=== PATIENT | male | born 1985 | race Caucasian/White ===

== ENCOUNTER → 2016-07-05 | Outpatient (CLI) | payer OTHER ==
[2016-07-05 08:42] LABS: ALBUMIN 4.1 GM/DL (3.2-5.2); ALBUMIN/GLOBULIN RATIO 1.32 (1.00-1.93); ALKALINE PHOSPHATASE 66 U/L (45-117); ALT/SGPT 57 U/L (12-78); ANION GAP 7 MEQ/L (8-16); AST/SGOT 29 U/L (15-37); BILIRUBIN,TOTAL 0.5 MG/DL (0.2-1.0); BLOOD UREA NITROGEN 13 MG/DL (7-18); CALCIUM LEVEL 8.9 MG/DL (8.5-10.1); CARBON DIOXIDE LEVEL 30 MEQ/L (21-32); CHLORIDE LEVEL 105 MEQ/L (98-107); CHOLESTEROL LEVEL 209 MG/DL (<200); GLOMERULAR FILTRATION RATE > 60.0 (>60); GLUCOSE, FASTING 99 MG/DL (70-105); POTASSIUM SERUM 4.2 MEQ/L (3.5-5.1); SODIUM LEVEL 142 MEQ/L (136-145); TOTAL PROTEIN 7.2 GM/DL (6.4-8.2); TRIGLYCERIDES LEVEL 106 MG/DL (<150)
== END ==
LOC: M LAB 07:17
PROVIDERS: ATTEND Nurse Practitioner Family
DX: E78.00 Pure hypercholesterolemia, unspecified (principal)

== ENCOUNTER → 2017-01-03 | Outpatient (REF) | payer OTHER ==
[~2017-01-03] MED LIST: no medications
== END ==
LOC: M SFHCLERA 13:46
PROVIDERS: ATTEND Nurse Practitioner Family
DX: J35.1 Hypertrophy of tonsils (principal)

== ENCOUNTER 2017-01-23 11:48 | Day surgery (SDC) | payer OTHER ==
[~2017-01-23] VITALS: Ht 177.8 cm; Wt 104.3 kg
[2017-01-23] MEDS ORDERED: LR 1,000 ML IV ONE (12:00)
[2017-01-23] MEDS ORDERED: LIDOCAINE 2% INJ 100 MG/5 ML SDV (FOR ANES.) As Ordered ONE (12:19)
[2017-01-23] MEDS ORDERED: ONDANSETRON 4MG/2ML VIAL (J2405) As Ordered ONE (12:19)
[2017-01-23] MEDS ORDERED: PROPOFOL 200 MG/20 ML VIAL As Ordered ONE (12:19)
[2017-01-23] MEDS ORDERED: ROCURONIUM BROMIDE 50 MG/5 ML VIAL/SYRINGE As Ordered ONE (12:19)
[2017-01-23] MEDS ORDERED: MIDAZOLAM INJ 2 MG/2 ML VIAL (J2250) As Ordered ONE (12:20)
[2017-01-23] MEDS ORDERED: fentaNYL 250 MCG/5 ML INJECTION (J3010) As Ordered ONE (12:20)
[2017-01-23] MEDS ORDERED: LIDOCAINE W/EPINEPHRINE 1% 20ML VIAL As Ordered ONE (12:44)
[2017-01-23] MEDS ORDERED: BUPIVACAINE/EPIN 0.5% 30 ML VIAL As Ordered ONE (12:44)
[2017-01-23] MEDS ORDERED: ONDANSETRON 4MG/2ML VIAL (J2405) IV PRN (14:00)
[2017-01-23] MEDS ORDERED: fentaNYL 100 MCG/2 ML INJECTION (J3010) IV PRN (14:00)
[2017-01-23] MEDS ORDERED: LR 1,000 ML IV SCH (14:00)
[2017-01-23] MEDS ORDERED: PERCOCET 5MG/325MG TAB PO PRN (14:00)
[2017-01-23] MEDS ORDERED: SUGAMMADEX SODIUM 500 MG/5 ML VIAL (BRIDION) As Ordered ONE (14:23)
[2017-01-23 15:30] VITALS: BP 146/83
--- NOTE | 2017-01-24 09:16 | RO ---
DATE OF PROCEDURE: 01/23/2017 PREPROCEDURE DIAGNOSIS: Chronic tonsillitis. POSTPROCEDURE DIAGNOSIS: Chronic tonsillitis. OPERATIVE PROCEDURE: Tonsillectomy. SURGEON: Archie Berry MD MAGAZINE WRITER: ANESTHESIA: DESCRIPTION OF PROCEDURE: Under general anesthesia with the patient intubated, a Lama-Xiang mouth gag was inserted. The tonsillar area was infiltrated with lidocaine, epinephrine, and Marcaine. Using a Coblator setting at 6 and 4, the tonsil was dissected free from its bed on both sides. The base and apex and other areas were cauterized with a setting of 4 on the Coblator. No blood loss. A nasogastric tube was passed to suction the upper esophagus. The patient tolerated the procedure well, was extubated and transferred to the recovery room in excellent condition.
== END 2017-01-23 15:42 | disposition home or self-care (01) ==
LOC: M SDC 11:48
PROVIDERS: ATTEND Otolaryngology
DX: J35.01 Chronic tonsillitis (principal)
CPT/HCPCS: 42826; 88302; J2250; J2405; J3010

== ENCOUNTER → 2017-11-10 | Outpatient (REF) | payer OTHER ==
[2017-11-10 12:14] LABS: ALBUMIN 3.6 GM/DL (3.2-5.2); ALBUMIN/GLOBULIN RATIO 0.97 (1.00-1.93); ALKALINE PHOSPHATASE 57 U/L (45-117); ANION GAP 8 MEQ/L (8-16); AST/SGOT 78 U/L (7-37); BILIRUBIN,TOTAL 0.7 MG/DL (0.2-1.0); BLOOD UREA NITROGEN 12 MG/DL (7-18); CALCIUM LEVEL 8.7 MG/DL (8.5-10.1); CARBON DIOXIDE LEVEL 27 MEQ/L (21-32); CHLORIDE LEVEL 104 MEQ/L (98-107); CHOLESTEROL LEVEL 192 MG/DL (<200); CHOLESTEROL RISK RATIO 4.465 (<5); CREATININE FOR GFR 1.01 MG/DL (0.70-1.30); GLOMERULAR FILTRATION RATE > 60.0 (>60); HDL CHOLESTEROL 43 MG/DL (>40); LDL CHOLESTEROL 116.6 MG/DL (<100); NON-HDL-C 149 MG/DL; SODIUM LEVEL 139 MEQ/L (136-145); TOTAL PROTEIN 7.3 GM/DL (6.4-8.2); TRIGLYCERIDES LEVEL 162 MG/DL (<150)
[2017-11-10 12:29] LABS: GLUCOSE, FASTING 76 MG/DL (70-100)
== END ==
LOC: M SFHCPLAZ 08:47
DX: E78.5 Hyperlipidemia, unspecified (principal)

== ENCOUNTER → 2017-12-03 | Outpatient (REF) | payer OTHER | LOC: M SFHCLERA 14:12 | DX: R50.9 Fever, unspecified (principal) ==

== ENCOUNTER → 2019-07-29 | Outpatient (CLI) | payer OTHER ==
--- NOTE | 2019-07-29 18:13 | REP ---
SCROTAL ULTRASOUND: Real-time sonographic evaluation of the scrotum and contents performed. Testicles are normal in size and echotexture, right testicle measuring 4.0 x 2.7 x 3.2 cm and left testicle 3.9 x 2.4 x 3.1 cm. There is no testicular mass or torsion. Blood flow is seen in each testicle with duplex Doppler evaluation. There are small bilateral hydroceles. Small subcentimeter cysts are seen in the head of the left epididymis, largest is 7 mm. Mobile scrotolith is seen in the inferior right scrotal sac measuring 4 mm in maximum diameter. Heterogeneous hypoechoic structure above the head of the right epididymis may represent a small hematoma. This measures about 1.3 x 0.8 x 1.1 cm. No other abnormalities are seen. IMPRESSION: No testicular mass or torsion. Small bilateral hydroceles. Right scrotolith measuring 4 mm. Hypoechoic structure above the head of the right epididymis measures 1.3 x 0.8 x 1.1 cm. This may represent a small hematoma. No other significant abnormality. Electronically Signed by Chicho Luis MD 07/30/2019 05:03 P
== END ==
LOC: M RAD 15:21
PROVIDERS: ATTEND Surgery
DX: G89.18 Other acute postprocedural pain (principal); N43.3 Hydrocele, unspecified; N50.3 Cyst of epididymis

== ENCOUNTER → 2020-01-20 | Outpatient (REF) | payer OTHER ==
[2020-01-24 11:36] LABS: SEMEN APPEARANCE OPAQUE (OPAQUE); SEMEN VISCOSITY LIQUID (LIQUID); SEMEN VOLUME 3.8 ml (2.0-5.0); WBC CONCENTRATION <=1 M/ml (<=1 M/ml)
== END ==
LOC: M LAB REF 09:15
PROVIDERS: ATTEND Family Medicine
DX: Z31.41 Encounter for fertility testing (principal)

== ENCOUNTER → 2020-02-27 | Outpatient (REF) ==
--- NOTE | 2020-03-06 14:58 | REP ---
AP VIEW PELVIS: SINGLE VIEW HISTORY: Autopsy. FINDINGS: The single AP view of the pelvis shows an intact bony ring. No pelvic or sacral fracture is seen. No hip fracture is noted. Visualized bowel gas pattern is unremarkable. Sacrum and sacroiliac (SI) joints are intact. IMPRESSION: No acute abnormality. MTDD
--- NOTE | 2020-03-06 14:58 | REP ---
CHEST X-RAY: SINGLE VIEW HISTORY: Autopsy. COMPARISON: Chest x-ray 04/25/2003. FINDINGS: Single AP portably obtained radiograph shows symmetrical aeration of the lung bhakta. No infiltrate is seen. There is no evidence of pneumothorax or hydrothorax. Heart is not enlarged. No traumatic bony abnormality. IMPRESSION: No significant abdomen seen. MTDD
--- NOTE | 2020-03-06 14:59 | REP ---
LIMITED C-SPINE SERIES: 2-VIEWS HISTORY: Autopsy. FINDINGS: AP and lateral views of the cervical spine demonstrate soft tissue emphysema in the soft tissues of the neck anteriorly and posteriorly and on the frontal view, along the left side of the cervical spine. Lateral view is suggestive of air within the spinal canal dorsally. Cervical vertebral body heights are preserved. Alignment is normal on AP and lateral views. The lateral radiograph demonstrates normal alignment distally to the C5-6 disc level. There is evidence of pneumocephalus. No cervical spine fracture is appreciated. IMPRESSION: Soft tissue gas in the soft tissues of the neck. Pneumocephalus at the skull base. No cervical spine fracture or subluxation seen. MTDD
--- NOTE | 2020-03-06 15:00 | REP ---
LIMITED SKULL SERIES: 3-VIEWS HISTORY: Autopsy. FINDINGS: There is a comminuted depressed skull fracture involving the frontal bones bilaterally. There is evidence of pneumocephalus anteriorly adjacent to the frontal bones and at the skull base. Skull fracture and depression appear a little more pronounced on the right than the left, but extensively crosses the midline. No mandibular fracture is appreciated. There appears to be buckling of the superior orbital/anterior cranial fossa margins on the lateral radiograph. Orbital margins are not well displayed on the frontal radiograph, which is somewhat under-exposed. Maxillofacial fractures cannot be excluded. MTDD
== END ==
LOC: M LAB 19:41